=== PATIENT | female | born 1985 | race Caucasian/White ===

== ENCOUNTER → 2024-04-12 10:06 | Outpatient (BNVA) | payer MEDICAID, SELFPAY | PROVIDERS: PCP Nurse Practitioner; Visit Provider Nurse Practitioner | DX: E66.9 Obesity, unspecified (principal); R53.83 Other fatigue | CPT/HCPCS: 80053; 83036; 84443 ==

== ENCOUNTER → 2025-05-04 10:07 | Outpatient (BNVA) | payer MEDICAID, SELFPAY | PROVIDERS: PCP Nurse Practitioner; Visit Provider Nurse Practitioner | DX: J02.9 Acute pharyngitis, unspecified (principal) | CPT/HCPCS: 87880 ==